=== PATIENT | male | born 1980 | race Caucasian/White ===

== ENCOUNTER 2025-02-02 09:43 | Outpatient (CLI) | payer OTHER, SELFPAY ==
[2025-02-02 10:28] LABS: Alanine Aminotransferase 39 U/L (6-50); Aspartate Amino Transferase 29 U/L (17-59)
--- OUTSIDE RECORDS SUMMARY | 2025-02-02 10:40 | XMS_ITS | CONTINUITY OF CARE DOCUMENT ---
Author Name china atkinson Address Unknown Organization [facility] Address [address] [address] [place] [address] Phone [phone] Care Team Providers Care Inweaver Name Role Phone Kristin PAUL, Tara Chaudhry Unavailable [phone] Tara Foster MD Unavailable [phone] N[facility]IA STEELE MD Unavailable [phone] PROBLEMS Condition Status Date Provider Notes Chest pain active Laurie Hager INS[employer]ANCE PROVID[employer] Payer name Policy type / Coverage type [employer] ID [facility] [id number] Other [id number] HISTORY OF PROCEDURES Procedure Date Procedure Name Provider Procedure Notes S tatus Stress EKG David Pruett MD comp leted Cardiolite, 2 units Tara Foster MD completed SPECT Images Tara Foster MD com pleted
--- OUTSIDE RECORDS SUMMARY | 2025-02-02 10:40 | XMS_ITS | Data Portability ---
Author Organization [facility] [employer], Main Office Address [address] [place] [address] Assessment Encounter Date Assessment Date Assessment LastModified by Organization Details LastModified Time 04/23/2023 04/23/2023 Optimize diet see dietitian obesity dyslipidemia type 2 diabetes discussed GLP agent he did not tolerate secondary to side effects follow-up 4 months. [email or web address] Not available 04/23/2023 18:07:26 08/26/2023 08/26/2023 Consider bariatric surgery but he still is not ready to make that commitment I will check blood work caloric restriction see me back in 4 months continue current therapy surgical refer [email or web address] Not available 08/27/2023 20:49:50 Plan of Treatment Reminders Order Date Submit Date Provider Last Modified By Organization Details Last Modified Time Details Appointments None recorded. Lab HbA1c (hemoglobi n A1c), blood 2022 023 [email or web address] [facility] (Lab), [address] [place], [address], 4 18:45:07 albumin/cr eatinine, mass ratio, urine 2022 023 [facility] (Lab), [address] [place], [address], 4 18:45:07 lipid panel, serum 2022 023 [email or web address] [facility] (Lab), [address] [place], [address], 3 14:10:18 CMP, serum or plasma 2022 023 [email or web address] [facility] (Lab), [address] [place], [address], 3 14:10:[address]/dietiti an referral 2022 023 cyl [facility] [employer], [address] [place], [address], 4 10:41:17 Procedures None recorded. Surgeries None recorded. Imaging None recorded. Medication Orders None recorded. Patient TargetsNo targets recorded. Patient InstructionsNo instructions recorded. 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 0 high Diabe mariah Scree samantha Crite gretchen: <5.7% Consi stent with absen ce of diabe mariah 5.7-6 .4% Consi stent with incre ased risk for diabe mariah (pred iabet es) >OR=6 .5% Consi stent with diabe mariah REFER ENCE: Diabe mariah Care 2016, 39(Goodson ppl.1 ):s13 -s22 Not Available [facility] (Lab) [address] [place], [address], 11/08/2021 20:33:35 11/08/19 22 11/08/2021 COMPR EHENS JOSE METAB OLIC PANEL sodium 138 mmol/ L 137-14 5 Not Available [facility] (Lab) [address] [place], [address], 11/08/2021 18:00:57 11/08/19 22 11/08/2021 COMPR EHENS JOSE METAB OLIC PANEL potassium 4.3 mmol/ L 3.5-5. 1 Not Available [facility] (Lab) [address] [place], [address], 11/08/2021 18:00:57 11/08/19 22 11/08/2021 COMPR EHENS JOSE METAB OLIC PANEL chloride 102 mmol/ L 98-107 Not Available [facility] (Lab) [address] [place], [address], 11/08/2021 18:00:57 11/08/19 22 11/08/2021 COMPR EHENS JOSE METAB OLIC PANEL carbon dioxide 25 mmol/ L 22-30 Not Available [facility] (Lab) [address] [place], [address], 11/08/2021 18:00:57 11/08/19 22 11/08/2021 COMPR EHENS JOSE METAB OLIC PANEL agap 15.3 mmol/ L 14-22 Not Available [facility] (Lab) [address] [place], [address], 11/08/2021 18:00:57 11/08/19 22 11/08/2021 COMPR EHENS JOSE METAB OLIC PANEL glucose 239 mg/dL 70-99 high Not Available [facility] (Lab) [address] [place], [address], 11/08/2021 18:00:57 11/08/19 22 11/08/2021 COMPR EHENS JOSE METAB OLIC PANEL BUN 15 mg/dL 8-19 Not Available [facility] (Lab) [address] [place], [address], 11/08/2021 18:00:57 11/08/19 22 11/08/2021 COMPR EHENS JOSE METAB OLIC PANEL creatinine 0.71 mg/dL 0.66-1 .25 Not Available [facility] (Lab) [address] [place], [address], 11/08/2021 18:00:57 11/08/19 22 11/08/2021 COMPR EHENS JOSE METAB OLIC PANEL GFR >60 Refer ence Range : Marceline ge GFR Healt hy Adult : >60 mL/mi n/1.7 3 m2 Chron ic Kidne y Disea se: 15-60 mL/mi n/1.7 3 m2 Kidne y Failu re: <15/m L/min /1.73 m2 www.n iddk. nih.g ov The MDRD study equat ion has not been valid ated in child liam <18 years of age; pregn ant women ; the elder ly >85 years of age; or in some racia l or ethni c subgr oups, such as Hispa nics. Outsi de the valid ated hilda eters , estim ated GFR is less accur ate, requi ring clini anahi judgm ent on a case- by-ca se basis . Clini anahi inter preta tion for other races and ages must be made by the clini sim. The MDRD study equat ion has not been valid ated for the evalu ation of serum creat inine relat ed to nutri troy l statu s or medic ation usage . For perso ns <18 years of age, a pedia tric GFR calcu lator is avail able on the [facility] websi te: https ://netta rutherford.melody guerra.o franco/pr heveress dereckal s/kdo qi/gf r_cal culat or Not Available [facility] (Lab) [address] [place], [address], 11/08/2021 18:00:57 11/08/19 22 11/08/2021 COMPR EHENS JOSE METAB OLIC PANEL alkaline phosphatase 122 U/L 38-126 Not Available [facility] (Lab) [address] [place], [address], 11/08/2021 18:00:57 11/08/19 22 11/08/2021 COMPR EHENS JOSE METAB OLIC PANEL alanine aminotransfe rase 75 U/L 0-50 high Not Available [facility] (Lab) [address] [place], [address], 11/08/2021 18:00:57 11/08/19 22 11/08/2021 COMPR EHENS JOSE METAB OLIC PANEL aspartate aminotransfe rase 50 U/L 15-46 high Not Available [facility] (Lab) [address] [place], [address], 11/08/2021 18:00:57 11/08/19 22 11/08/2021 COMPR EHENS JOSE METAB OLIC PANEL bilirubin, total 0.70 mg/dL 0.20-1 .30 Not Available [facility] (Lab) [address] [place], [address], 11/08/2021 18:00:57 11/08/19 22 11/08/2021 COMPR EHENS JOSE METAB OLIC PANEL calcium 9.7 mg/dL 8.4-10 .2 Not Available [facility] (Lab) [address] [place], [address], 11/08/2021 18:00:57 11/08/19 22 11/08/2021 COMPR EHENS JOSE METAB OLIC PANEL total protein 7.2 g/dL 6.3-8. 2 Not Available [facility] (Lab) [address] [place], [address], 11/08/2021 18:00:57 11/08/19 22 11/08/2021 COMPR EHENS JOSE METAB OLIC PANEL albumin 4.9 g/dL 3.4-5. 0 Not Available [facility] (Lab) [address] [place], [address], 11/08/2021 18:00:57 11/08/19 22 11/08/2021 COMPR EHENS JOSE METAB OLIC PANEL globulin 2.3 g/dL 2.6-4. 2 low Not Available [facility] (Lab) [address] [place], [address], 11/08/2021 18:00:57 11/08/19 22 11/08/2021 COMPR EHENS JOSE METAB OLIC PANEL A/G ratio 2.1 ratio 1.0-2. 0 high Not Available [facility] (Lab) [address] [place], [address], 11/08/2021 18:00:57 11/08/19 22 11/08/2021 LIPID PANEL cholesterol 185 mg/dL 140-19 9 NIH GUICHO NSUS RECOM MENDA TION FOR CORBY STERO L: ADULT CHILD LOW RISK: <200 <170 BORDE RLINE : <200- 239 ----- HIGH RISK: >240 >200 Not Available [facility] (Lab) [address] [place], [address], 11/08/2021 18:00:46 11/08/19 22 11/08/2021 LIPID PANEL triglyceride s 315 mg/dL 0-150 high NIH GUICHO NSUS REPOR T RECOM MENDA TION FOR TRIGL YCERI ELIAS: ADULT CHILD LOW RISK: <150 ----- BODER LINE: 150-1 99 ----- HIGH RISK: >200 ----- Not Available [facility] (Lab) [address] [place], [address], 11/08/2021 18:00:46 11/08/19 22 11/08/2021 LIPID PANEL HDL cholesterol 55 mg/dL 40- Not Available [facility] (Lab) [address] [place] [address], [address], 11/08/2021 18:00:46 11/08/19 22 11/08/2021 LIPID PANEL LDL cholesterol, calculated 67 mg/dL 0-130 NIH GUICHO NSUS REPOR T RECOM MENDA TIONS FOR LDL: ADULT CHILD LOW RISK <130 <110 (OPTI MAL LDL) <100 ----- BORDE RLINE : 130-1 59 ----- HIGH RISK: >160 >130 A TRIGL YCERI DE RESUL T >400 INVAL IDATE S THE CALCU LATIO N FOR LDL FRACT IONAT ION - THE LDL RESUL T WILL NOT BE REPOR NATASHA. Not Available [facility] (Lab) [address] [place], [address], 11/08/2021 18:00:46 04/19/20 22 04/19/2022 LIPID PANEL cholesterol 157 mg/dL 140-19 9 NIH GUICHO NSUS RECOM MENDA TION FOR CORBY STERO L: ADULT CHILD LOW RISK: <200 <170 BORDE RLINE : <200- 239 ----- HIGH RISK: >240 >200 Not Available [facility] (Lab) [address] [place], [address], 04/19/2022 12:13:41 04/19/20 22 04/19/2022 LIPID PANEL triglyceride s 237 mg/dL 0-150 high NIH GUICHO NSUS REPOR T RECOM MENDA TION FOR TRIGL YCERI ELIAS: ADULT CHILD LOW RISK: <150 ----- BODER LINE: 150-1 99 ----- HIGH RISK: >200 ----- Not Available [facility] (Lab) [address] [place], [address], 04/19/2022 12:13:41 04/19/20 22 04/19/2022 LIPID PANEL HDL cholesterol 53 mg/dL 40- Not Available [facility] (Lab) [address] [place], [address], 04/19/2022 12:13:41 04/19/20 22 04/19/2022 LIPID PANEL LDL cholesterol, calculated 57 mg/dL 0-130 NIH GUICHO NSUS REPOR T RECOM MENDA TIONS FOR LDL: ADULT CHILD LOW RISK <130 <110 (OPTI MAL LDL) <100 ----- BORDE RLINE : 130-1 59 ----- HIGH RISK: >160 >130 A TRIGL YCERI DE RESUL T >400 INVAL IDATE S THE CALCU LATIO N FOR LDL FRACT IONAT ION - THE LDL RESUL T WILL NOT BE REPOR NATASHA. Not Available [facility] (Lab) [address] [place], [address], 04/19/2022 12:13:41 04/19/20 22 04/19/2022 COMPR EHENS JOSE METAB OLIC PANEL sodium 140 mmol/ L 137-14 5 Not Available [facility] (Lab) [address] [place], [address], 04/19/2022 12:13:36 04/19/20 22 04/19/2022 COMPR EHENS JOSE METAB OLIC PANEL potassium 4.8 mmol/ L 3.5-5. 1 Not Available [facility] (Lab) [address] [place], [address], 04/19/2022 12:13:36 04/19/20 22 04/19/2022 COMPR EHENS JOSE METAB OLIC PANEL chloride 107 mmol/ L 98-107 Not Available [facility] (Lab) [address] [place], [address], 04/19/2022 12:13:36 04/19/20 22 04/19/2022 COMPR EHENS JOSE METAB OLIC PANEL carbon dioxide 22 mmol/ L 22-30 Not Available [facility] (Lab) [address] [place], [address], 04/19/2022 12:13:36 04/19/20 22 04/19/2022 COMPR EHENS JOSE METAB OLIC PANEL anion gap 15.8 mmol/ L 14-22 Not Available [facility] (Lab) [address] [place], [address], 04/19/2022 12:13:36 04/19/20 22 04/19/2022 COMPR EHENS JOSE METAB OLIC PANEL glucose 185 mg/dL 70-99 high Not Available [facility] (Lab) [address] [place], [address], 04/19/2022 12:13:36 04/19/20 22 04/19/2022 COMPR EHENS JOSE METAB OLIC PANEL BUN 14 mg/dL 8-19 Not Available [facility] (Lab) [address] [place], [address], 04/19/2022 12:13:36 04/19/20 22 04/19/2022 COMPR EHENS JOSE METAB OLIC PANEL creatinine 0.85 mg/dL 0.66-1 .25 Not Available [facility] (Lab) [address] [place], [address], 04/19/2022 12:13:36 04/19/20 22 04/19/2022 COMPR EHENS JOSE METAB OLIC PANEL GFR >60 Refer ence Range : Marceline ge GFR Healt hy Adult : >60 mL/mi n/1.7 3 m2 Chron ic Kidne y Disea se: 15-60 mL/mi n/1.7 3 m2 Kidne y Failu re: <15/m L/min /1.73 m2 www.n iddk. nih.g ov The MDRD study equat ion has not been valid ated in child liam <18 years of age; pregn ant women ; the elder ly >85 years of age; or in some racia l or ethni c subgr oups, such as Hisak nics. Outsi de the valid ated hilda eters , estim ated GFR is less accur ate, requi ring clini anahi judgm ent on a case- by-ca se basis . Clini anahi inter preta tion for other races and ages must be made by the clini sim. The MDRD study equat ion has not been valid ated for the evalu ation of serum creat inine relat ed to nutri troy l statu s or medic ation usage . For perso ns <18 years of age, a pedia tric GFR calcu lator is avail able on the [facility] websi te: https ://netta w.melody guerra.o rg/pr ofess ional s/kdo qi/gf r_cal culat or Not Available [facility] (Lab) [address] [place], [address], 04/19/2022 12:13:36 04/19/20 22 04/19/2022 COMPR EHENS JOSE METAB OLIC PANEL alkaline phosphatase 156 U/L 38-126 high Not Available [facility] (Lab) [address] [place], [address], 04/19/2022 12:13:36 04/19/20 22 04/19/2022 COMPR EHENS JOSE METAB OLIC PANEL alanine aminotransfe rase 71 U/L 0-50 high Not Available [facility] (Lab) [address] [place], [address], 04/19/2022 12:13:36 04/19/20 22 04/19/2022 COMPR EHENS JOSE METAB OLIC PANEL aspartate aminotransfe rase 54 U/L 15-46 high Not Available [facility] (Lab) [address] [place], [address], 04/19/2022 12:13:36 04/19/20 22 04/19/2022 COMPR EHENS JOSE METAB OLIC PANEL bilirubin, total 0.80 mg/dL 0.20-1 .30 Not Available [facility] (Lab) [address] [place], [address], 04/19/2022 12:13:36 04/19/20 22 04/19/2022 COMPR EHENS JOSE METAB OLIC PANEL calcium 9.5 mg/dL 8.4-10 .2 Not Available [facility] (Lab) [address] [place], [address], 04/19/2022 12:13:36 04/19/20 22 04/19/2022 COMPR EHENS JOSE METAB OLIC PANEL total protein 7.3 g/dL 6.3-8. 2 Not Available [facility] (Lab) [address] [place], [address], 04/19/2022 12:13:36 04/19/20 22 04/19/2022 COMPR EHENS JOSE METAB OLIC PANEL albumin 4.5 g/dL 3.4-5. 0 Not Available [facility] (Lab) [address] [place], [address], 04/19/2022 12:13:36 04/19/20 22 04/19/2022 COMPR EHENS JOSE METAB OLIC PANEL globulin 2.8 g/dL 2.6-4. 2 Not Available [facility] (Lab) [address] [place], [address], 04/19/2022 12:13:36 04/19/20 22 04/19/2022 COMPR EHENS JOSE METAB OLIC PANEL A/G ratio 1.6 ratio 1.0-2. 0 Not Available [facility] (Lab) [address] [place], [address], 04/19/2022 12:13:36 04/19/20 22 04/19/2022 HEMOG LOBIN A1C HA1C 8.0 % 4.0-6. 0 high Diabe mariah Scree samantha Crite gretchen: <5.7% Consi stent with absen ce of diabe mariah 5.7-6 .4% Consi stent with incre ased risk for diabe mariah (pred iabet es) >OR=6 .5% Consi stent with diabe mariah REFER ENCE: Diabe mariah Care 2016, 39(Goodson ppl.1 ):s13 -s22 Not Available [facility] (Lab) [address] [place], [address], 04/19/2022 11:01:01 04/19/20 22 04/19/2022 URINA LYSIS COMPL ETE/I RIS W/RFX color yellow Not Available [facility] (Lab) [address] [place], [address], 04/19/2022 10:10:26 04/19/20 22 04/19/2022 URINA LYSIS COMPL ETE/I RIS W/RFX appear clear Not Available [facility] (Lab) [address] [place], [address], 04/19/2022 10:10:26 04/19/20 22 04/19/2022 URINA LYSIS COMPL ETE/I RIS W/RFX specific gravity 1.031 1.001- 1.030 high Not Available [facility] (Lab) [address] [place], [address], 04/19/2022 10:10:26 04/19/20 22 04/19/2022 URINA LYSIS COMPL ETE/I RIS W/RFX pH 5.0 pH_un its 5.0-9. 0 Not Available [facility] (Lab) [address] [place], [address], 04/19/2022 10:10:04/19/20 22 04/19/2022 URINA LYSIS COMPL ETE/I RIS W/RFX leukocytes negati ve ramiro/u L negati ve- Not Available [facility] (Lab) [address] [place], [address], 04/19/2022 10:10:26 04/19/20 22 04/19/2022 URINA LYSIS COMPL ETE/I RIS W/RFX nitrite negati ve negati ve- Not Available [facility] (Lab) [address] [place], [address], 04/19/2022 10:10:26 04/19/20 22 04/19/2022 URINA LYSIS COMPL ETE/I RIS W/RFX protein negati ve mg/dL negati ve- Not Available [facility] (Lab) [address] [place], [address], 04/19/2022 10:10:26 04/19/20 22 04/19/2022 URINA LYSIS COMPL ETE/I RIS W/RFX glucose normal mg/dL normal - Not Available [facility] (Lab) [address] [place], [address], 04/19/2022 10:10:04/19/20 22 04/19/2022 URINA LYSIS COMPL ETE/I RIS W/RFX ketones negati ve mg/dL negati ve- Not Available [facility] (Lab) [address] [place], [address], 04/19/2022 10:10:04/19/20 22 04/19/2022 URINA LYSIS COMPL ETE/I RIS W/RFX urobilinogen normal mg/dL normal - Not Available [facility] (Lab) [address] [place], [address], 04/19/2022 10:10:04/19/20 22 04/19/2022 URINA LYSIS COMPL ETE/I RIS W/RFX bilirubin negati ve mg/dL negati ve- Not Available [facility] (Lab) [address] [place], [address], 04/19/2022 10:10:04/19/20 22 04/19/2022 URINA LYSIS COMPL ETE/I RIS W/RFX blood negati ve mg/dL negati ve- Not Available [facility] (Lab) [address] [place], [address], 04/19/2022 10:10:04/19/20 22 04/19/2022 URINA LYSIS COMPL ETE/I RIS W/RFX white blood cells 0-8 /i??h pfi?? 0-8 Not Available [facility] (Lab) [address] [place], [address], 04/19/2022 10:10:26 04/19/20 22 04/19/2022 URINA LYSIS COMPL ETE/I RIS W/RFX red blood cells 0-4 /i??h pfi?? 0-4 Not Available [facility] (Lab) [address] [place], [address], 04/19/2022 10:10:26 04/19/20 22 04/19/2022 URINA LYSIS COMPL ETE/I RIS W/RFX bacteria none Not Available [facility] (Lab) [address] [place], [address], 04/19/2022 10:10:26 04/19/20 22 04/19/2022 URINA LYSIS COMPL ETE/I RIS W/RFX mucous modera te /i??l pfi?? abnormal Not Available [facility] (Lab) [address] [place], [address], 04/19/2022 10:10:26 04/19/20 22 04/19/2022 URINA LYSIS COMPL ETE/I RIS W/RFX squamous epithelial occasi onal /i??l pfi?? abnormal Not Available [facility] (Lab) [address] [place], [address], 04/19/2022 10:10:26 04/19/20 22 04/19/2022 URINA LYSIS COMPL ETE/I RIS W/RFX color yellow Not Available [facility] (Lab) [address] [place], [address], 04/19/2022 10:10:16 04/19/20 22 04/19/2022 URINA LYSIS COMPL ETE/I RIS W/RFX appear clear Not Available [facility] (Lab) [address] [place], [address], 04/19/2022 10:10:16 04/19/20 22 04/19/2022 URINA LYSIS COMPL ETE/I RIS W/RFX specific gravity 1.031 1.001- 1.030 high Not Available [facility] (Lab) [address] [place], [address], 04/19/2022 10:10:16 04/19/20 22 04/19/2022 URINA LYSIS COMPL ETE/I RIS W/RFX pH 5.0 pH_un its 5.0-9. 0 Not Available [facility] (Lab) [address] [place], [address], 04/19/2022 10:10:16 04/19/20 22 04/19/2022 URINA LYSIS COMPL ETE/I RIS W/RFX leukocytes negati ve ramiro/u L negati ve- Not Available [facility] (Lab) [address] [place], [address], 04/19/2022 10:10:16 04/19/20 22 04/19/2022 URINA LYSIS COMPL ETE/I RIS W/RFX nitrite negati ve negati ve- Not Available [facility] (Lab) [address] [place], [address], 04/19/2022 10:10:16 04/19/20 22 04/19/2022 URINA LYSIS COMPL ETE/I RIS W/RFX protein negati ve mg/dL negati ve- Not Available [facility] (Lab) [address] [place], [address], 04/19/2022 10:10:16 04/19/20 22 04/19/2022 URINA LYSIS COMPL ETE/I RIS W/RFX glucose normal mg/dL normal - Not Available [facility] (Lab) [address] [place], [address], 04/19/2022 10:10:16 04/19/20 22 04/19/2022 URINA LYSIS COMPL ETE/I RIS W/RFX ketones negati ve mg/dL negati ve- Not Available [facility] (Lab) [address] [place], [address], 04/19/2022 10:10:16 04/19/20 22 04/19/2022 URINA LYSIS COMPL ETE/I RIS W/RFX urobilinogen normal mg/dL normal - Not Available [facility] (Lab) [address] [place], [address], 04/19/2022 10:10:16 04/19/20 22 04/19/2022 URINA LYSIS COMPL ETE/I RIS W/RFX bilirubin negati ve mg/dL negati ve- Not Available [facility] (Lab) [address] [place], [address], 04/19/2022 10:10:16 04/19/20 22 04/19/2022 URINA LYSIS COMPL ETE/I RIS W/RFX blood negati ve mg/dL negati ve- Not Available [facility] (Lab) [address] [place], [address], 04/19/2022 10:10:16 08/26/20 23 08/26/2023 MICRO ALBUM N RNDM W/CRE AT RATIO ur creat 123.90 mg/dL REFER ENCE RANGE NOT ESTAB LISHE D FOR RANDO M URINE CREAT ININE Not Available [facility] (Lab) [address] [place], [address], 08/26/2023 18:34:46 08/26/20 23 08/26/2023 MICRO ALBUM N RNDM W/CRE AT RATIO microalbumin , urine 7.0 mg/L 0.0-16 .6 Not Available [facility] (Lab) [address] [place], [address], 08/26/2023 18:34:46 08/26/20 23 08/26/2023 MICRO ALBUM N RNDM W/CRE AT RATIO microalbumin /creatinine ratio 6 mcg/m g 0-29 THE [facility]I CAN DIABE MARIAH ASSOC IATIO N DEFIN ES ABNOR MALIT IES IN ALBUM IN EXCRE TION FOLLO WS: CATEG ORY RESUL T (MCG/ MG CREAT ININE ) MARC L <30 MICRO ALBUM INURI A 30-29 9 CLINI ANAHI ALBUM INURI A > OR = 300 THE ADA RECOM MENDS THAT 2 OF 2 SPECI MENS COLLE CTED WITHI N A 3- TO 6-MON TH PERIO D BE ABNOR MAL BEFOR E CONSI RENETTA G A PATIE NT TO HAVE CROSS ED ONE OF THESE DIAGN OSTIC THRES HOLDS . REFER ENCE: DIABE MARIAH CARE, VOL. 26: [id number] 96, 2002 Not Available [facility] (Lab) [address] [place], [address], 08/26/2023 18:34:46 08/26/20 23 08/26/2023 LIPID PANEL cholesterol 185 mg/dL 140-19 9 NIH GUICHO NSUS RECOM MENDA TION FOR CORBY STERO L: ADULT CHILD LOW RISK: <200 <170 BORDE RLINE : <200- 239 ----- HIGH RISK: >240 >200 Not Available [facility] (Lab) [address] [place], [address], 08/26/2023 19:10:18 08/26/20 23 08/26/2023 LIPID PANEL triglyceride s 250 mg/dL 0-150 high NIH GUICHO NSUS REPOR T RECOM MENDA TION FOR TRIGL YCERI ELIAS: ADULT CHILD LOW RISK: <150 ----- BODER LINE: 150-1 99 ----- HIGH RISK: >200 ----- Not Available [facility] (Lab) [address] [place], [address], 08/26/2023 19:10:18 08/26/20 23 08/26/2023 LIPID PANEL HDL cholesterol 57 mg/dL 40- Not Available [facility] (Lab) [address] [place], [address], 08/26/2023 19:10:18 08/26/20 23 08/26/2023 LIPID PANEL LDL cholesterol, calculated 78 mg/dL 0-130 NIH GUICHO NSUS REPOR T RECOM MENDA TIONS FOR LDL: ADULT CHILD LOW RISK <130 <110 (OPTI MAL LDL) <100 ----- BORDE RLINE : 130-1 59 ----- HIGH RISK: >160 >130 A TRIGL YCERI DE RESUL T >400 INVAL IDATE S THE CALCU LATIO N FOR LDL FRACT IONAT ION - THE LDL RESUL T WILL NOT BE REPOR NATASHA. Not Available [facility] (Lab) [address] [place], [address], 08/26/2023 19:10:18 08/26/20 23 08/26/2023 COMPR EHENS JOSE METAB OLIC PANEL sodium 138 mmol/ L 137-14 5 Not Available [facility] (Lab) [address] [place], [address], 08/26/2023 19:12:31 08/26/20 23 08/26/2023 COMPR EHENS JOSE METAB OLIC PANEL potassium 4.2 mmol/ L 3.5-5. 1 Not Available [facility] (Lab) [address] [place], [address], 08/26/2023 19:12:31 08/26/20 23 08/26/2023 COMPR EHENS JOSE METAB OLIC PANEL chloride 104 mmol/ L 98-107 Not Available [facility] (Lab) [address] [place], [address], 08/26/2023 19:12:31 08/26/20 23 08/26/2023 COMPR EHENS JOSE METAB OLIC PANEL carbon dioxide 23 mmol/ L 22-30 Not Available [facility] (Lab) [address] [place], [address], 08/26/2023 19:12:31 08/26/20 23 08/26/2023 COMPR EHENS JOSE METAB OLIC PANEL anion gap 15.2 mmol/ L 14-22 Not Available [facility] (Lab) [address] [place], [address], 08/26/2023 19:12:31 08/26/20 23 08/26/2023 COMPR EHENS JOSE METAB OLIC PANEL glucose 171 mg/dL 70-99 high Not Available [facility] (Lab) [address] [place], [address], 08/26/2023 19:12:31 08/26/20 23 08/26/2023 COMPR EHENS JOSE METAB OLIC PANEL BUN 12 mg/dL 8-19 Not Available [facility] (Lab) [address] [place], [address], 08/26/2023 19:12:31 08/26/20 23 08/26/2023 COMPR EHENS JOSE METAB OLIC PANEL creatinine 0.83 mg/dL 0.66-1 .25 Not Available [facility] (Lab) [address] [place], [address], 08/26/2023 19:12:31 08/26/20 23 08/26/2023 COMPR EHENS JOSE METAB OLIC PANEL GFR >60 Refer ence Range : Marceline ge GFR Healt hy Adult : >60 mL/mi n/1.7 3 m2 Chron ic Kidne y Disea se: 15-60 mL/mi n/1.7 3 m2 Kidne y Failu re: <15/m L/min /1.73 m2 www.n iddk. nih.g ov The MDRD study equat ion has not been valid ated in child liam <18 years of age; pregn ant women ; the elder ly >85 years of age; or in some racia l or ethni c subgr oups, such as Hisak nics. Outsi de the valid ated hilda eters , estim ated GFR is less accur ate, requi ring clini anahi judgm ent on a case- by-ca se basis . Clini anahi inter preta tion for other races and ages must be made by the clini sim. The MDRD study equat ion has not been valid ated for the evalu ation of serum creat inine relat ed to nutri troy l statu s or medic ation usage . For perso ns <18 years of age, a pedia tric GFR calcu lator is avail able on the [facility] websi te: https ://netta rutherford.melody guerra.o franco/pr heveress ional s/kdo qi/gf r_cal culat or Not Available [facility] (Lab) [address] [place], [address], 08/26/2023 19:12:31 08/26/20 23 08/26/2023 COMPR EHENS JOSE METAB OLIC PANEL alkaline phosphatase 131 U/L 38-126 high Not Available [facility] (Lab) [address] [place], [address], 08/26/2023 19:12:31 08/26/20 23 08/26/2023 COMPR EHENS JOSE METAB OLIC PANEL alanine aminotransfe rase 68 U/L 0-50 high Not Available [facility] (Lab) [address] [place], [address], 08/26/2023 19:12:31 08/26/20 23 08/26/2023 COMPR EHENS JOSE METAB OLIC PANEL aspartate aminotransfe rase 41 U/L 15-46 Not Available [facility] (Lab) [address] [place], [address], 08/26/2023 19:12:31 08/26/20 23 08/26/2023 COMPR EHENS JOSE METAB OLIC PANEL bilirubin, total 0.70 mg/dL 0.20-1 .30 Not Available [facility] (Lab) [address] [place], [address], 08/26/2023 19:12:31 08/26/20 23 08/26/2023 COMPR EHENS JOSE METAB OLIC PANEL calcium 10.1 mg/dL 8.4-10 .2 Not Available [facility] (Lab) [address] [place], [address], 08/26/2023 19:12:31 08/26/20 23 08/26/2023 COMPR EHENS JOSE METAB OLIC PANEL total protein 7.6 g/dL 6.3-8. 2 Not Available [facility] (Lab) [address] [place], [address], 08/26/2023 19:12:31 08/26/20 23 08/26/2023 COMPR EHENS JOSE METAB OLIC PANEL albumin 4.5 g/dL 3.4-5. 0 Not Available [facility] (Lab) [address] [place], [address], 08/26/2023 19:12:31 08/26/20 23 08/26/2023 COMPR EHENS JOSE METAB OLIC PANEL globulin 3.1 g/dL 2.6-4. 2 Not Available [facility] (Lab) [address] [place], [address], 08/26/2023 19:12:31 08/26/20 23 08/26/2023 COMPR EHENS JOSE METAB OLIC PANEL A/G ratio 1.5 ratio 1.0-2. 0 Not Available [facility] (Lab) [address] [place], [address], 08/26/2023 19:12:31 08/26/20 23 08/26/2023 HEMOG LOBIN A1C HA1C 8.2 % 4.0-6. 0 high Diabe mariah Scree samantha Crite gretchen: <5.7% Consi stent with absen ce of diabe mariah 5.7-6 .4% Consi stent with incre ased risk for diabe mariah (pred iabet es) >OR=6 .5% Consi stent with diabe mariah REFER ENCE: Diabe mariah Care 2016, 39(Goodson ppl.1 ):s13 -s22 Not Available [facility] (Lab) [address] [place], [address], 08/26/2023 19:57:39 Result Notes None recorded. Problems Name Problem SNOMED Code Status Onset Date Resolution Date Notes Provider Name and Address Organization Details Recorded Time Depressive disorder 65489159 Active 2022 Not Available [facility] 3 05:15:30 Liver enzymes outside reference range 184566496 Active Not Available [facility] 3 05:15:29 Dyspnea 912880101 Active Not Available [facility] 3 05:15:29 Low back pain 063227475 Active Not Available [facility] 3 05:15:29 Type 2 diabetes mellitus without complication 674618256 Active 2021 Not Available [facility] 3 05:15:29 Dyslipidemia 044816195 Active Not Available [facility] 3 05:15:30 Obesity 907298916 Active 2020 Not Available [facility] 3 05:15:30 Hyperlipidemi a 51564635 Active 2021 Not Available [facility] 3 05:15:30 Rhinitis 43694688 Active Not Available [facility] 3 05:15:30 Snoring 13185588 Active Not Available [facility] 3 05:15:30 Diabetes mellitus 91733944 Active 2016 Not Available [facility] 3 05:15:30 Sleep apnea 84748471 Active Not Available [facility] 3 05:15:30 Sebaceous cyst of skin 853115653 Active 2021 Not Available [facility] 3 05:15:30 Problem Notes None recorded. Procedures Surgical History Date Name Laterality Status Provider Name and Address Organization Details Recorded Time Unlisted px femur/knee completed Not Available [facility] 12/18/2022 04:42:01 Imaging Results None recorded. Procedure Notes None recorded. Medical Equipment None Reported. Allergies No known drug allergies Medications Name Sig Start Date Stop Date Status Note LastModified by Organization Details LastModified Time buspirone 5 mg tablet TK 1 T PO BID 09/20 completed Not Available Not Available Not Available lamotrigin e 150 mg tablet TAKE 1 TABLET BY MOUTH TWICE DAILY active Not Available Not Available No t Available metformin 500 mg tablet TAKE 2 TABLETS BY MOUTH TWICE DAILY WITH MEALS 04/23 completed Not Available Not Available Not Available bupropion HCl SR 150 mg tablet,12 hr sustained- release Take 1 tablet twice a day by oral route. 06/11 completed Not Available Not Available Not Available venlafaxin e ER 75 mg capsule,ex tended release 24 hr TAKE 2 CAPSULES BY MOUTH EVERY DAY WITH FOOD 04/23 completed Not Available Not Available Not Available atorvastat in 10 mg tablet TAKE 1 TABLET BY MOUTH ONCE DAILY active Not Available Not Available No t Available clonazepam 0.5 mg tablet 09/20 completed Not Available Not Available Not Available venlafaxin e ER 150 mg capsule,ex tended release 24 hr TAKE 1 CAPSULE BY MOUTH ONCE DAILY FOR 30 DAYS active Not Available Not Available No t Available penicillin V potassium 500 mg tablet TAKE 1 TABLET BY MOUTH FOUR TIMES DAILY FOR 7 DAYS active Not Available Not Available No t Available bupropion HCl SR 100 mg tablet,12 hr sustained- release 09/20 completed Not Available Not Available Not Available lamotrigin e 25 mg tablet 02/20 completed Not Available Not Available Not Available terbinafin e HCl 250 mg tablet Take 1 tablet every day by oral route. 04/23 completed Not Available Not Available Not Available lorazepam 0.5 mg tablet 02/20 completed Not Available Not Available Not Available IORevolutionTouch Ultra Test strips testing 5 times a day 09/25 completed Not Available Not Available Not Available benzonatat e 100 mg capsule TAKE 1 TO 2 CAPSULES BY MOUTH EVERY 8 HOURS NEEDED FOR COUGH 04/23 completed Not Available Not Available Not Available doxycyclin e monohydrat e 100 mg capsule TAKE 1 CAPSULE BY MOUTH TWICE DAILY FOR 7 DAYS active Not Available Not Available No t Available cephalexin 500 mg capsule active Not Available Not Available Not Available fluoxetine 20 mg tablet Take 1 tablet every day by oral route. active Not Available Not Available No t Available sertraline 25 mg tablet 09/20 completed Not Available Not Available Not Available hydroxyzin e HCl 25 mg tablet TAKE 1 TABLET BY MOUTH AT BEDTIME 09/25 completed Not Available Not Available Not Available propranolo l 20 mg tablet 07/09 completed Not Available Not Available Not Available hydroxyzin e HCl 10 mg tablet 02/20 completed Not Available Not Available Not Available metformin ER 500 mg tablet,ext ended release 24 hr TAKE 1 TABLET BY MOUTH ONCE DAILY active Not Available Not Available No t Available sertraline 50 mg tablet 07/09 completed Not Available Not Available Not Available doxycyclin e hyclate 100 mg tablet Take 1 tablet twice a day by oral route. active Not Available Not Available No t Available lamotrigin e 100 mg tablet TAKE 1 TABLET BY MOUTH ONCE DAILY 03/29 completed Not Available Not Available Not Available amoxicilli n 875 mg-potassi um clavulanat e 125 mg tablet 04/23 completed Not Available Not Available Not Available Crestor 5 mg tablet take 1 tab every other day active Not Available Not Available No t Available OneTouch Ultra2 Meter kit 09/25 completed Not Available Not Available Not Available BD Ultra-Fine Short Pen Needle 31 gauge x /16 07/23 completed Not Available Not Available Not Available Lantus Solostar U-100 Insulin 100 unit/mL (3 mL) subcutaneo us pen inject 10 units once daily 07/23 completed Not Available Not Available Not Available Humalog KwikPen (U-100) Insulin 100 unit/mL subcutaneo us INJECT 25 UNITS BEFORE MEALS PER SLIDING SCALE active Not Available Not Available No t Available OneTouch Delica Lancets 33 gauge 09/25 completed Not Available Not Available Not Available QNASL 80 mcg/actuat ion nasal aerosol spray Rosamond 2 spray(s) each nostril daily active Not Available Not Available No t Available Toujeo SoloStar U-300 Insulin 300 unit/mL (1.5 mL) subcutaneo us pen INJECT SUBCUTANE OUSLY 55 UNITS DAILY 2022 active [address] chu* * Not Available Not Available Not Available Tresiba FlexTouch U-100 insulin 100 unit/mL (3 mL) subcutaneo us pen INJECT 15 UNITS SUBCUTANE OUSLY ONCE DAILY 03/27 completed Not Available Not Available Not Available Ozempic 0.25 mg or 0.5 mg (2 mg/1.5 mL) subcutaneo us pen injector INJECT 0.25MG SUB Q ONCE A WEEK FOR 4 WEEKS THEN INCREASE TO 0.5MG WEEKLY active Not Available Not Available No t Available Paxlovid 300 mg (150 mg x 2)-100 mg tablets in a dose pack FOLLOW PACKAGE DIRECTION S 04/23 completed Not Available Not Available Not Available Mounjaro 2.5 mg/0.5 mL subcutaneo us pen injector active Not Available Not Available Not Available Vitals Date Recorded Body mass index (BMI) Body height Heart rate Body temperature Body weight Systolic blood pressure Diastolic blood pressure Provider Name and Address Organization Details Last Updated DateTime 2 41.5 kg/m2 177.8 cm 72 /min 97.2 [degF] 476916. 19 g 134 mm[Hg] 90 mm[Hg] Not Available [facility] 3 04:44:21 Date Recorded Body mass index (BMI) Body height Heart rate Body temperature Body weight Systolic blood pressure Diastolic blood pressure Provider Name and Address Organization Details Last Updated DateTime 2 41.6 kg/m2 177.8 cm 88 /min 97.3 [degF] 581850. 79 g 124 mm[Hg] 70 mm[Hg] Not Available [facility] 3 04:44:21 Date Recorded Body mass index (BMI) Body height Heart rate Body temperature Body weight Systolic blood pressure Diastolic blood pressure Provider Name and Address Organization Details Last Updated DateTime 2 42.9 kg/m2 177.8 cm 94 /min 97.7 [degF] 712217. 12 g 124 mm[Hg] 82 mm[Hg] Not Available [facility] 3 04:44:21 Date Recorded Body height Body mass index (BMI) Body weight Body temperature Heart rate Systolic blood pressure Diastolic blood pressure Provider Name and Address Organization Details Last Updated DateTime 3 177.8 cm 41.5 kg/m2 395764. 19 g 98 [degF] 95 /min 116 mm[Hg] 88 mm[Hg] RALF [facility] 3 16:44:18 Date Recorded Body height Body mass index (BMI) Body weight Body temperature Heart rate Systolic blood pressure Diastolic blood pressure Provider Name and Address Organization Details Last Updated DateTime 3 177.8 cm 42.3 kg/m2 686766. 75 g 99.7 [degF] 93 /min 142 mm[Hg] 88 mm[Hg] RALF [facility] 3 16:29:36 Social History Question Answer Notes LastModified by Organization Details LastModified Time Tobacco Smoking Status Current Every Day Smoker quit Sep 2018; restarted 01/2020 [facility] [place] [facility] 08/26/2023 16:21:57 Do You Have An Advance Directive? No [id number] Information not available 12/18/2022 What Is Your Level Of Alcohol Consumption? Occasional [id number] Information not available 12/18/2022 What Is Your Level Of Caffeine Consumption? Moderate [id number] Information not available 12/18/2022 How Much Tobacco Do You Chew? None [id number] Information not available 12/18/2022 In The 14 Days Before Symptom Onset, Have You Had Close Contact With A Laboratory-conf irmed COVID-19 While That Case Was Ill? No [email or web address] Information not available 08/26/2023 In The 14 Days Before Symptom Onset, Have You Had Close Contact With A Person Who Is Under Investigation For COVID-19 While That Person Was Ill? No [email or web address] Information not available 08/26/2023 What Type Of Diet Are You Following? REGULAR [id number] Information not available 12/18/2022 Which Illicit Or Recreational Drugs Have You Used? None [email or web address] Information not available 08/26/2023 Do You Or Have You Ever Used E-cigarettes Or Vape? Current User Of Electronic Cigarettes [email or web address] Information not available 08/26/2023 What Is The Highest Grade Or Level Of School You Have Completed Or The Highest Degree You Have Received? 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 No [email or web address] Information not available 08/26/2023 What Is The Fluoride Status Of Your Home? Fluoridated [email or web address] Information not available 08/26/2023 Are There Any Guns Present In Your Home? No [email or web address] Information not available 08/26/2023 Do You Use Insect Repellent Routinely? No [email or web address] Information not available 08/26/2023 Where Do You Live? [facility] [email or web address] Information not available 08/26/2023 Do You Have A Medical Power Of Production Stage Manager? No [email or web address] Information not available 08/26/2023 What Was The Date Of Your Most Recent Tobacco Screening? 08/26/2023 [email or web address] Information not available 08/26/2023 Have You Ever Been Counseled For Unhealthy Alcohol Use? No [email or web address] Information not available 08/26/2023 Do You Have Any Pets? Yes 2 Dogs 3 Cats [email or web address] Information not available 08/26/2023 What Is Your Relationship Status? [id number] Information not available 12/18/2022 Do You Use Your Seat Belt Or Car Seat Routinely? Yes Information not available 08/26/2023 Do You Have Smoke And Carbon Monoxide Detectors In Your Home? Yes [email or web address] Information not available 08/26/2023 At What Age Did You Start Smoking Tobacco? 12 [email or web address] Information not available 08/26/2023 Are You Passively Exposed To Smoke? No [email or web address] Information not available 08/26/2023 Do You Or Have You Ever Used Smokeless Tobacco? Never Used Smokeless Tobacco MIGRATION.[id number] [id number] Information not available 12/18/2022 Are There Any Smokers In Your House? No [email or web address] Information not available 08/26/2023 How Much Tobacco Do You Smoke? 1 PPD [id number] [id number] Information not available 12/18/2022 What Types Of Sporting Activities Do You Participate In? None [email or web address] Information not available 08/26/2023 Do You Feel Stressed (tense, Restless, Nervous, Or Anxious, Or Unable To Sleep At Night)? AS02529-6 [email or web address] Information not available 08/26/2023 Do You Use Any Illicit Or Recreational Drugs? No [email or web address] Information not available 08/26/2023 Do You Use Sunscreen Routinely? No [email or web address] Information not available 08/26/2023 Have You Recently Traveled Abroad? No [email or web address] Information not available 08/26/2023 Do You Have Any Dietary Restrictions? No [email or web address] Information not available 08/26/2023 Do You Or Have You Ever Used Any Other Forms Of Tobacco Or Nicotine? No [email or web address] Information not available 08/26/2023 Sex: Male Functional Status Question Answer Note LastModified by Organizat ion Details LastModified Time What is your exercise level? Occasional [id number] Information not available 12/18/2022 Mental Status None recorded. Family History Relationship Description Onset Age of this Age Resolved Age Notes LastModified by Organization Details LastModified Time Mother Myocardial infarction 42 [id number] Not available 12/18/2022 04:42:04 Father Family history unknown Not available 04/2023 16:21:56 Sister Diabetes mellitus [id number] Not available 12/18/2022 04:42:04 Medical History Condition Response CHEST XRAY N KIDNEY STONES N CARPAL TUNNEL SYNDROME N MRSA N HISTORY OF DRUG ABUSE N COPD N RADIATION / CHEMOTHERAPY N BLOOD DISEASES N SURGERY N MUMPS N BOWEL PROBLEMS N FAILED BACK SYNDROME N STROKE/TIA N THYROID DISEASE N ULCERS N OTHER MODALITIES N CERVICALGIA N TB SKIN TEST N MYOCARDIAL INFARCTION N OBESITY N PARAPELGIA N URINARY/BLADDER/KIDNEY PROBLEMS N Increased Urination N CORONARY ARTERY DISEASE (CAD) N INPATIENT PSYCH CARE N Do you have Advance directive? N MENIERE'S DISEASE N ADDICTION CONCERNS N CAROTID STENOSIS N ENDOMETRIOSIS N Impotence N PARATHYROID DISEASE N PERIPHERAL VASCULAR DISEASE N MUSCLE,JOINT OR BONE PROBLEMS N DVT N STOMACH ULCERS N GASTROINTESTINAL BLEEDING N BLOOD CLOTS N Difficulty Urinating N PAST HISTORY OF VEHICULAR ACCIDENT N ASTHMA N USE OF NSAIDS N ARTERIAL INSUFFICIENCY N CHF N GI PROBLEMS N Low Testosterone N VISION/EYE PROBLEMS N MALE HYPOGONADISM N PERSONALITY DISORDER N TOURETTE'S N ANXIETY DISORDER Y BLADDER/KIDNEY N CHRONIC EAR INFECTIONS N BIPOLAR DISORDER N CONDUCT DISORDER N OSTEOARTHRITIS N TUBERCULOSIS N DIVERTICULITIS N SLEEP APNEA Y ALLERGIES/HAYFEVER N HEART ARRHYTHMIA N PROSTATE N INSOMNIA N PAST MEDICATION HISTORY N EYE PROBLEMS N SCHIZOAFFECTIVE N EDEMA N HYPOTHYROIDISM N CONSTIPATION N CAROTID BLOCKAGE N MOOD DISORDER N BACK / NECK PROBLEMS Y MIGRAINES N BREAST PROBLEMS N POLYCYSTIC OVARIES N FIBROMYALGIA N OSTEOPOROSIS N Do you have a healthcare POA? N PERIPHERAL NEUROPATHY N APPENDICITIS N VON WILLIBRAND'S DISEASE N SEASONAL ALLERGIES N HEARTBURN / REFLUX N PLEURISY N ADD/ADHD N Bronchoscopy N AUTISM SPECTRUM DISORDER (ASD) N SLEEP DISORDER N RETINOPATHY N HEADACHES/MIGRAINES N SLEEP STUDY N VASCULAR DISEASE N Blood Disorder N HEART DISEASE/HEART PROBLEMS N DEVELOPMENTAL OR BEHAVIORAL DISORDERS N CLAUDICATION N MULTIPLE SCLEROSIS N PULMONARY FUNCTION TEST N ANESTHESIA COMPLICATIONS N ATRIAL FIBRILLATION N Gall Stones N PULMONARY EMBOLISM N AUTOIMMUNE DISEASE N NERVE DISEASE N BLINDNESS N RHEUMATIC FEVER N BLADDER PROBLEMS N Enlarged Prostate N OTHER # 1 N POLIO N LUNG DISEASE/DISORDER N Other # 2 N EAR OR HEARING PROBLEMS N PAST SPINAL SURGERY N SCHIZOPHRENIA N FEMALE PROBLEMS / INFECTIONS N DEPRESSION (INCLUDING POST ) N CHEST CT N RENAL INSUFFICIENCY N BENIGN PROSTATIC HYPERPLASIA N MEASLES N HYPOTENSION N GERD/NAUSEA N EXCESSIVE PERSPIRATION N ANEURYSM N USE OF BLOOD THINNERS N SKIN PROBLEMS N EMPHYSEMA N SHORTNESS OF BREATH N GASTROINTESTINAL DISORDER N PTSD N Do you have a living will? N CATARACTS N CONCUSSION OR SPINAL TRAUMA N ERECTILE DYSFUNCTION N VARICOSITIES N NEUROPATHY N INFERTILITY N AIDS/HIV N FRACTURES N CHEMOTHERAPY / RADIATION N LIVER DISEASE N HYPERTENSION N Deficiency N Metal allergy N BLOOD TRANSFUSION N ANEMIA/BLOOD DISORDER N BRONCHITIS N GLAUCOMA N FOOT PROBLEM N HEART VALVE DISORDERS N CHICKENPOX N BACK INJECTIONS N INFECTIOUS DISEASE N ESRD N PAST INTERVENTIONAL PAIN MANAGEMENT HIST ORY N RHEUMATOID ARTHRITIS N HIGH CHOLESTEROL / HYPERLIPIDEMIA Y HYPERTHYROIDISM N UTI N PVD N EATING DISORDER N NEUROLOGICAL PROBLEMS N CHRONIC PAIN SYNDROME N HAVE YOU BEEN HOSPITALIZED OR SEEN IN [facility] ER IN THE PAST YEAR ? N ATHEROSCLEROSIS N BURSITIS N HERNIATED DISC N DIALYSIS N ECZEMA N HISTORY WITH COMPLICATIONS WITH ANESTHES IA ? N PSYCHOSIS N ARTHRITIS N RESPIRATORY PROBLEMS N PAST HISTORY OF FALL N DIABETES, TYPE Y BAD TEETH N ENT N POST LAMINECTOMY SYNDROME N HEPATITIS / LIVER DISEASE N PULMONARY DISEASE N GOUT N ALZHEIMER'S DISEASE N PAIN N Brain Problems N FATIGUE N HERPES N DEMENTIA N SEIZURES/EPILEPSY N PACEMAKER N DIZZINESS N HEAD TRAUMA OR INJURY N KIDNEY DISEASE N SCARLET FEVER N MENTAL DISORDER/ILLNESS N NEUROPSYCHOLOGICAL N CANCER: SPECIFY N CARDIAC ARRHYTHMIA N PNEUMONIA N DEAF/HEARING IMPAIRED N Immunizations Vaccine Type Date Status Note Provider Nam e and Address Organization Details Recorded Time COVID-19, mRNA, LNP-S, PF, 100 mcg/0.5mL dose or 50 mcg/0.25mL dose 1 completed Not Available [facility] 08/28/2023 05:15:30 COVID-19, mRNA, LNP-S, PF, 100 mcg/0.5mL dose or 50 mcg/0.25mL dose 1 completed Not Available [facility] 08/28/2023 05:15:30 Influenza, split virus, quadrivalent, preservative 7 completed Not Available [facility] 08/28/2023 05:15:30 Influenza, split virus, quadrivalent, PF 9 completed Not Available [facility] 08/28/2023 05:15:30 Past Encounters Encounter ID Performer Location Encounter Start Date Encounter Closed Date Diagnosis/Indication Diagnosis SNOMED-CT Code Diagnosis ICD10 Code Diagnosis Note [id number] [facility] [address] [place] [address] [address] [address] 02/19/2021 00:00:00 03/11/2021 15:31:25 [id number] [facility] [address] [place] [address] 03/28/2021 00:00:00 03/31/2021 11:55:43 [id number] [facility] [address] [place] [address] 07/30/2021 00:00:00 07/30/2021 21:22:07 [id number] [facility] [address] [place] [address] 11/08/2021 00:00:00 11/10/2021 12:51:38 [id number] [facility] [address] [address] 04/19/2022 00:00:00 05/19/2022 18:00:46 [id number] [facility] [address] [place] [address] 09/25/2022 00:00:00 09/25/2022 21:51:10 [id number] Hunter Chu MD [facility] [address] [place] [address] 04/23/2023 16:14:19 04/23/2023 17:15:56 Type 2 diabetes mellitus without complication 445519303 E11.9 Obesity 624671982 E66.9 Dyslipidemia 756317013 E 78.5 [id number] Hunter Chu MD [facility] [address] [place] [address] 08/26/2023 16:20:17 08/26/2023 17:20:35 Diabetes mellitus 33021047 E11.9 Hyperlipidemia 96470682 E78.5 Obesity 896001936 E66.9 Health Concerns Section Related Observation LastModified by Organization Detai ls LastModified Time None Recorded Concern Status LastModified by Organization Details LastModified Time None Recorded Advance Directives Directive N: Payers Encounter Date Sequence Insurance Name Policy Number Policy Avendaño Covered Member ID Avendaño Member ID Guarantor Name 04/23/2023 1 [facility] [id number] Felipe Rivas [id number] Felipe Rivas 08/26/2023 1 [facility] [id number] Felipe Rivas [id number] Felipe Rivas Notes Date Note Type Note Provider Name and Address Organization Details Recorded Time 3 text/html obesity trouble losing weight diabetes A1c 8.8 on blood work from work dyslipidemia needs to follow a low-fat diet Hunter Chu MD [address], [facility] [address], [place], [address], [place] 04/23/2023 18:07:47 3 text/html Diabetes not controlledDyslipidemia could do betterObesity refuses to take G LP 1Mass on back that hurts Hunter Chu MD [address], [facility] [address], [place], [address], [place] 08/27/2023 20:51:04
--- OUTSIDE RECORDS SUMMARY | 2025-02-02 10:40 | XMS_ITS | Patient Health Record ---
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 Name Role Phone Merced Ny Unavailable [phone] Migration, Provider Unavailable Unavailable Reason For Referral No Information Medications Medication SIG (Take, Route, Frequency, Duration) Notes Start Date End Date Status LORazepam 0.5 MG Oral 02/24/2024 Ac tive Venlafaxine HCl ER 75 MG TAKE 1 CAPSULE BY MOUTH ONCE DAILY (TOTAL DOSE 112.5 MG) for 30 Active Toujeo SoloStar 300 UNIT/ML Subcutaneous 02/24/2024 Active metFORMIN HCl ER 500 MG Oral 02/24/2024 Active hydrOXYzine HCl 25 MG Oral 02/24/2024 Active Venlafaxine HCl ER 150 MG Oral 02/24/2024 Active Atorvastatin Calcium 10 MG Oral 02/24/2024 Active lamoTRIgine 150 MG Oral 02/24/2024 Active HumaLOG KwikPen 100 UNIT/ML Subcutaneous 02/24/2024 Active Mounjaro 2.5 MG/0.5ML Subcutaneous *Reorder from 6APT for eRx and Interaction Alerts* 02/24/2024 Active Venlafaxine HCl ER 37.5 MG TAKE 1 CAPSULE BY MOUTH ONCE DAILY (TOTAL DOSE 112.5 MG) for 30 Active Zoloft 25 MG Oral 02/24/2024 Active Social History Sex Assigned At : Social History Observation Description Sex Assigned At Male Problems Problem Type SNOMED Code ICD Code Onset Dates Problem Status W/U Status Risk Notes Problem Severe recurrent major depression without psychotic features (67509479) Major depressive disorder, recurrent severe without psychotic features (F33.2) Active confirmed Problem Primary insomnia (8545096) Primary insomnia (F51.01) Active confirmed Vital Signs Heart Rate 93 /min 02/24/2024 Height-cm 182.88 cm 02/24/2024 Blood pressure diastolic 87 mm Hg 02/24/2024 Weight-kg 126.46 kg 02/24/2024 Height 72.00 in 02/24/2024 Blood pressure systolic 129 mm Hg 02/24/2024 Weight 278.80 lbs 02/24/2024 BMI 37.8 kg/m2 02/24/2024 Encounters Encounter [facility] Date [facility] [address] [place] [address] 02/24/2024 Mer[place] Ny Generalized anxiety disorder F41.1 ; Primary insomnia F51.01 ; Obstructive sleep apnea (adult) (pediatric) G47.33 and Major depressive disorder, recurrent, mild F33.0 [facility] [address] [place] [address] 02/20/2024 Provider Migration [facility] [address] [place] [address] 02/23/2024 Provider Migration [facility], [facility] [address] [place] [address] 02/24/2024 Provider Migration [facility], [facility] [address] [place] [address] 03/06/2024 Provider Migration [facility], [facility] [address] [place] [address] 03/07/2024 Provider Migration [facility], [facility] [address] [place] [address] 04/29/2024 [place] [facility] [address] [place] [address] 04/29/2024 Merced Ny Primary insomnia F51.01 [facility] [address] [place] [address] 04/29/2024 Merced Ny [facility], [facility] [address] [place] [address] 04/30/2024 Merced Ny Major depressive disorder, recurrent severe without psychotic features F33.2 Assessments Encounter Date Diagnosis (ICD Code) Assessment Notes Treatment Notes Treatment Clinical Notes Section Notes 02/24/2024 Major depressive disorder, recurrent, mild (ICD-10 - F33.0) 02/24/2024 Generalized anxiety disorder (ICD-10 - F41.1) 02/24/2024 Primary insomnia (ICD-10 - F51.01) 02/24/2024 Obstructive sleep apnea (adult) (pediatric) (ICD-10 - G47.33) 04/29/2024 Primary insomnia (ICD-10 - F51.01) Electronic Prior Authorization was requested for lamoTRIgine 150 MG Tablet. Provider can order medication once approval received. 04/30/2024 Major depressive disorder, recurrent severe without psychotic features (ICD-10 - F33.2) Electronic Prior Authorization was requested for Venlafaxine HCl 37.5 MG Tablet. Provider can order medication once approval received. Electronic Prior Authorization was requested for Venlafaxine HCl 37.5 MG Tablet. Provider can order medication once approval received. Plan Of Treatment No Information Insurance Providers Payer Name Payer Address Payer Phone Subscriber Number Group Number Insured Name Patient Relationship to Insured Coverage Start Date Coverage End Date [employer] [address] [place] [address] [id number] FOUZIA ARREOLA Self - patient is the insured
--- OUTSIDE RECORDS SUMMARY | 2025-02-02 10:40 | XMS_ITS | Continuity of Care Document ---
Author Organization [facility] Address [address] [place] [address] [address] [place] [address] Phone Care Team Providers Care Manager Purchasing Name Role Phone Ana Luisa Don Unavailable Unavailable Procedures Procedure Date Eye Exam, New Patient Refraction Advance Directives Directive Yes / No Effective Date File Name No Information Encounters Encounter Description Practice Location Reason(s) For Visit Diagnoses Date Provider Providers Copied on Encounter [facility], [address] [place] [address] [address], [place], [place], [id number], [place] tel:[phone] [facility] [place] No Information [address] [facility] , [address], [place], [address], [place]. tel:[phone] Family History Family Member Type Diagnosis Age At Onset No Information Payers Payer name Insurance type Covered alliance party ID Authoriza tion(s) Medicaid [facility] [id number] Social History Type Description Quantity Date Captured Comments Sex Male Smoking Status No Information Chief Complaint And Reason For Visit No Information Reason For Referral Reason For Referral No Information History Of Present Illness Encounter Date Complaint History Of Prese nt Illness No Information Functional Status Date Functional Assessmen t No Information Instructions Date Instruction Additional Infor mation No Information Assessments Type Assessment Date No Information Patient Care Teams Name Effective Dates (start - stop) Status Members No Information
== END 2025-02-02 09:44 | disposition home or self-care (01) ==
PROVIDERS: PCP Internal Medicine; Visit Provider Podiatrist Foot & Ankle Surgery
DX: B35.1 Tinea unguium (principal)
CPT/HCPCS: 36415; 84450; 84460